=== PATIENT | female | born 1975 | race Caucasian/White ===

== ENCOUNTER 2016-12-05 08:51 | Emergency (ER) | payer OTHER ==
[2016-12-05] MEDS ORDERED: TORAdol 30 mg Injection IM ONE (09:36)
[2016-12-05] MEDS ORDERED: TORAdol 30 mg Injection ONE (09:44)
--- NOTE | 2016-12-05 10:08 | ERPHSYRPT ---
- History of Present Illness Time Seen by Provider: 12/05/16 09:21 Source: patient Patient Subjective Stated Complaint: pt states she has been working a lot and c/ o pain to right knee. states she has had an injury to right knee in the past. pt states Dr. mandi Jama used to give her steriod injestions. Triage Nursing Assessment: pt pink, warm, dry, pt ambulted into er without difficulty. no deformity noted to right knee. Physician History: CC: right knee pain hx: 41 y/o patient with right knee pain for several years. She is on percocet thru Dr Jama. Has had knee aspiration and steroid injection in the past. She has appt to see Dr Jama tomorrow. She took a new job and bent over to place something in locker and felt a snap in her right knee. She could not work so came to ER. She states this is not a work related injury. No fever, redness or chills. Allergies/Adverse Reactions: No Known Drug Allergies Allergy (Verified 12/05/16 09:13) Home Medications: Alprazolam [Xanax] 0.5 mg PO BID 09/12/14 [History] Pantoprazole 20 mg [Protonix 20MG Tablet] 20 mg PO DAILY 12/01/15 [History ] Duloxetine HCl [Cymbalta] 60 mg PO DAILY 12/05/16 [History] Lurasidone HCl [Latuda] 20 mg PO DAILY 12/05/16 [History] Hx Tetanus, Diphtheria Vaccination/Date Given: Yes (up to date) Hx Influenza Vaccination/Date Given: No Hx Pneumococcal Vaccination/Date Given: No Immunizations Up to Date: Yes - Review of Systems Constitutional: No Fever, No Chills Musculoskeletal: Joint Pain (right knee), No Back Pain, No Neck Pain Neurological: No Focal Weakness, No Parasthesia - Past Medical History Pertinent Past Medical History: Yes Neurological History: No Pertinent History ENT History: No Pertinent History Cardiac History: Other Endocrine Medical History: No Pertinent History Musculoskeletal History: Degenerative Disk Disease GI Medical History: No Pertinent History History: No Pertinent History Psycho-Social History: Anxiety, Depression Female Reproductive Disorders: Other Other Medical History: heart murmur - Past Surgical History Past Surgical History: Yes Neuro Surgical History: No Pertinent History Cardiac: No Pertinent History Gastrointestinal: No Pertinent History Genitourinary: No Pertinent History Musculoskeletal: No Pertinent History Female Surgical History: Section, Other Other Surgical History: ablation, one ovary removed - Social History Smoking Status: Current every day smoker How long have you smoked: 20 Exposure to second hand smoke: No Drug Use: none Patient Lives Alone: No - Female History Hx Last Menstrual Period: ablation - Nursing Vital Signs Nursing Vital Signs: Initial Vital Signs Temperature 97.8 F Temperature Source Oral Pulse Rate 84 Respiratory Rate 18 Blood Pressure 147/69 Pain Intensity 4 - Physical Exam General Appearance: alert Eyes, Ears, Nose, Throat Exam: moist mucous membranes Neck Exam: supple Cardiovascular/Respiratory Exam: regular rate/rhythm Hips Exam: right: non-tender, normal inspection Legs Exam: right leg: normal inspection, normal range of motion Knees Exam: right knee: bone tenderness, soft tissue tenderness Ankle Exam: right ankle: non-tender, normal inspection Neuro/Tendon Exam: normal sensation, normal motor functions Mental Status Exam: alert, oriented x 3, cooperative Skin Exam: warm, dry - Course Nursing assessment & vital signs reviewed: Yes Ordered Tests: Active Orders 24 hr Category Date Time Status Missael Bandage Application -[facility] STAT Care 12/05/16 09:36 Active Medication Summary Discontinued Medications Generic Name Dose Route Start Last Admin Trade Name Freq PRN Reason Stop Dose Admin Ketorolac Tromethamine 60 mg 12/05/16 09:36 12/05/16 09:46 Toradol 30 Mg Injection IM 12/05/16 09:37 60 mg STAT ONE Administration Ketorolac Tromethamine Confirm 12/05/16 09:44 Toradol 30 Mg Injection Administered 12/05/16 09:45 Dose 60 mg .ROUTE .STK-MED ONE - Progress Progress Note: 12/05/16 10:06 She has diffuse knee tender. No swelling. She declines xray. Explained she needs to have knee injection at Dr Jama tomorrow as scheduled instead of in ER. Toradol and missael wrap given. Counseled pt/family regarding: diagnosis, need for follow-up - Departure Time of Disposition: 10:07 Departure Disposition: Home Clinical Impression: Right knee pain Qualifiers: Chronicity: chronic Qualified Code(s): M25.561 - Pain in right knee; G89.29 - Other chronic pain Condition: Stable Critical Care Time: No Referrals: RHONA JAMA [Primary Care Provider] - Instructions: Knee Pain Additional Instructions: Missael wrap See Dr Jama as scheduled tomorrow
[2016-12-05 10:20] VITALS: BP 151/85; PULSE 80; O2SAT 96
== END 2016-12-05 10:20 | disposition home or self-care (01) ==
LOC: ED 08:51
DX: M25.561 Pain in right knee (principal); G89.29 Other chronic pain; X50.0XXA Overexertion from strenuous movement or load, initial encounter
CPT/HCPCS: 96372; 99283; J1885

== ENCOUNTER 2018-02-20 16:55 | Observation (INO) | payer OTHER ==
[2018-02-20] MEDS ORDERED: Sodium Chloride 0.9% 10 ML FLUSH Syringe IV PRN (17:25)
[2018-02-20] MEDS ORDERED: APRESOLINE 20 MG/ML INJ IV PRN (17:26)
[2018-02-20] MEDS ORDERED: BABY ASPIRIN 81 MG CHEW PO ONE (17:30)
[2018-02-20 17:43] LABS: BASOPHIL % 0.3 % (0.0-0.4); Basophil (Absolute #) 0.04 (0-0.4); Eosinophil % 1.3 % (0.00-5.0); Eosinophil (Absolute #) 0.16 (0-0.5); Granulocyte Absolute (ANC) 8.69 (1.4-6.9); Granulocytes % 71.1 % (36.0-66.0); Hematocrit 39.9 % (35-47); Hemoglobin 13.1 gm/dl (12.0-16.0); Lymphocyte (Absolute #) 2.78 (1.0-4.6); Lymphocytes % 22.7 % (24.0-44.0); Mean Cell Volume 81.8 fl (78-100); Mean Corpuscular Hemoglobin 26.8 pg (26-32); Mean Corpuscular Hgb Concent. 32.8 g/dl (32-36); Mean Platelet Volume 10.7 fl (6-9.5); Monocyte (Absolute #) 0.56 (0.0-1.3); Monocytes % 4.6 % (0.0-12.0); Platelet Count 265 K/mm3 (150-450); Red Blood Count 4.88 M/mm3 (4.1-5.4); Red Cell Distribution Width 14.7 % (11.5-14.0); White Blood Count 12.2 K/mm3 (4.0-10.5)
[2018-02-20 18:08] LABS: ALBUMIN 4.4 g/dL (3.5-5.0); ALKALINE PHOSPHATASE 109 U/L (38-126); ANION GAP 14.2 MEQ/L (5-15); BLOOD UREA NITROGEN 15 mg/dL (7-17); CHLORIDE 103 mmol/L (98-107); Calcium 9.4 mg/dL (8.4-10.2); Carbon Dioxide 26 mmol/L (22-30); Creatinine 1 0.56 mg/dL (0.52-1.04); Glucose 150 mg/dL (74-106); Potassium 3.9 mmol/L (3.5-5.1); SGOT/AST 31 U/L (14-36); SGPT/ALT 34 U/L (0-35); SODIUM 139 mmol/L (137-145); Total Protein 7.5 g/dL (6.3-8.2)
[2018-02-20 18:18] LABS: NT PRO BNP 371 pg/mL (0-450)
[2018-02-20] MEDS ORDERED: Cyclobenzaprine 10 MG PO PRN (19:21)
[2018-02-20] MEDS ORDERED: Zestril 10 MG ONE (19:55)
[2018-02-20] MEDS ORDERED: hydroDIURIL 25 MG ONE (19:56)
[2018-02-20] MEDS: XANAX 1 MG PO SCH ×2 (19:57→22:48)
[2018-02-20] MEDS: Zestril 10 MG*** 10 MG, hydroDIURIL 25 MG*** 12.5 MG PO SCH ×2 (20:00)
[2018-02-20] MEDS: Sodium Chloride 0.9% 10 ML FLUSH Syringe IV SCH (22:47)
[2018-02-20] MEDS: Pepcid 20 MG PO SCH (22:47)
[2018-02-21] MEDS: Sodium Chloride 0.9% 10 ML FLUSH Syringe IV SCH (06:46)
[2018-02-21 07:04] VITALS: O2SAT 95
[2018-02-21] MEDS ORDERED: MEDICATION INTERVENTION MC SCH (07:30)
[2018-02-21] MEDS: XANAX 1 MG PO SCH (08:08)
[2018-02-21] MEDS: Pepcid 20 MG PO SCH (08:08)
[2018-02-21] MEDS: Zestril 10 MG*** 10 MG, hydroDIURIL 25 MG*** 12.5 MG PO SCH ×2 (08:09)
--- NOTE | 2018-02-21 08:30 | XRAY ---
Indication: Short of breath. Hypertension. Comparison: September 12, 2014. PA/lateral chest now demonstrates subtle right middle lobe infiltrate versus atelectasis. Remaining heart and lungs unremarkable. Bony thorax intact again with mild degenerative changes.
--- NOTE | 2018-02-21 08:58 | PCM.HP ---
History of Present Illness - Chief Complaint Chief Complaint: SOB Date: 02/21/18 History of Present Illness: is a 42 year old female. she presented to the clinic yesterday for routine refills however she had been feeling short of breath for about 1 month and tingling in her arms and more shortness of breath with laying down. She had checked her bp in [facility] a few times and it said high and >200 but she didn't think it was right. She had been seen in [facility] ED and given azithromycin for bronchitis a few weeks previously and they had told her to stop her HCTZ blood pressure pill because it would make her dehydrated and cough so she had not been taking it. She denied any chest pain. SHe has been working 7 days per week and drinks about 1 pint of liquor per night. SHe has had nonproductive cough. In office she was found to have EKG with nonspecific ST T wave abnormalities and prolonged Qtc and she had bp of 220/120 and was given clonidine 0.1 mg daily and sent for observation. Overnight she received lisinopril/hctz and a dose of hydralazine 10 mg and this am bp improved to 150/70 and she is feeling a little better. She has less shortness of breath. CXR shows subtle pneumonia in the right middle lobe. - Review of Systems Constitutional: No Fever, No Chills Eyes: No Symptoms Ears, Nose, & Throat: No Symptoms Respiratory: Cough, Short Of Breath Cardiac: No Chest Pain, No Edema, No Syncope Abdominal/Gastrointestinal: No Abdominal Pain, No Nausea, No Vomiting, No Diarrhea Genitourinary Symptoms: No Dysuria Musculoskeletal: No Back Pain, No Neck Pain Skin: No Rash Neurological: No Dizziness, No Focal Weakness, No Sensory Changes Psychological: No Symptoms Endocrine: No Symptoms Hematologic/Lymphatic: No Symptoms Immunological/Allergic: No Symptoms Medications & Allergies Home Medications: Home Medication List Ranitidine HCl [Zantac] 150 mg PO BID #0 tablet 09/14/14 [Rx Confirmed 02/20/18] Pantoprazole 20 mg [Protonix 20MG Tablet] 20 mg PO DAILY 12/01/15 [ History Confirmed 02/20/18] Duloxetine HCl [Cymbalta] 60 mg PO HS 12/05/16 [History Confirmed 02/20/18] Lurasidone HCl [Latuda] 20 mg PO HS 12/05/16 [History Confirmed 02/20/18] Alprazolam 0.5 mg PO BID #60 tablet 02/21/18 [Rx] Cefdinir 300 mg [Omnicef 300 mg] 300 mg PO BID #12 capsule 02/21/18 [Rx] Lisinopril/Hydrochlorothiazide [Lisinopril-Hctz 10-12.5 mg Tab] 1 each PO BID # 60 tablet 02/21/18 [Rx] Allergies/Adverse Reactions: Allergies Allergy/AdvReac Type Severity Reaction Status Date / Time No Known Drug Allergies Allergy Verified 12/05/16 09:13 - Past Medical History Past Medical History: Yes Neurological History: No Pertinent History ENT History: No Pertinent History Cardiac History: Other Respiratory History: Bronchitis Endocrine Medical History: No Pertinent History Musculoskelatal History: Degenerative Disk Disease GI Medical History: No Pertinent History History: No Pertinent History Pyscho-Social History: Anxiety, Depression Reproductive Disorders: Other Comment: heart murmur - Female History Are you now?: No - Past Surgical History Past Surgical History: Yes Neuro Surgical History: No Pertinent History Cardiac History: No Pertinent History Respiratory Surgery: No Pertinent History GI Surgical History: No Pertinent History Genitourinary Surgical Hx: No Pertinent History Musculskeletal Surgical Hx: No Pertinent History Female Surgical History: Section, Other Other Surgical History: ablation, one ovary removed - Social History Smoking Status: Current every day smoker How long have you smoked: 20 Exposure to second hand smoke: No Alcohol: Occasionally Drug Use: none - Physical Exam Vital Signs: Vital Signs - 24 hr Temp Pulse Resp BP Pulse Ox 02/21/18 07:03 97.6 F 70 20 150/67 95 02/21/18 04:00 97.5 F 74 18 179/79 97 02/21/18 00:00 98.1 F 77 16 193/88 94 L 02/20/18 22:45 180/96 02/20/18 20:05 98.3 F 76 20 208/91 95 02/20/18 17:44 98.2 F 110 H 22 218/98 95 02/20/18 17:13 98.2 F 110 H 22 218/98 95 General Appearance: no apparent distress, alert, obese Neurologic Exam: alert, oriented x 3, cooperative, normal mood/affect, nml cerebellar function, nml station & gait, sensation nml, No motor deficits Eye Exam: PERRL/EOMI, eyes nml inspection Ears, Nose, Throat Exam: normal ENT inspection, TMs normal, pharynx normal, moist mucous membranes Neck Exam: normal inspection, non-tender, supple, full range of motion Respiratory Exam: normal breath sounds, lungs clear, No respiratory distress Cardiovascular Exam: regular rate/rhythm, normal heart sounds, normal peripheral pulses Gastrointestinal/Abdomen Exam: soft, normal bowel sounds, No tenderness, No mass Back Exam: normal inspection, normal range of motion, No CVA tenderness, No vertebral tenderness Extremity Exam: normal inspection, normal range of motion, pelvis stable Skin Exam: normal color, warm, dry, No rash Lymphatic Exam: No adenopathy Results - Labs Lab/Micro Results: Lab Results-Last 24 Hours 02/20/18 02/20/18 Range/Units 17:29 17:29 WBC 12.2 H (4.0-10.5) K/mm3 RBC 4.88 (4.1-5.4) M/mm3 Hgb 13.1 (12.0-16.0) gm/dl Hct 39.9 (35-47) % MCV 81.8 (78-100) fl MCH 26.8 (26-32) pg MCHC 32.8 (32-36) g/dl RDW 14.7 H (11.5-14.0) % Plt Count 265 (150-450) K/mm3 MPV 10.7 H (6-9.5) fl Gran % 71.1 H (36.0-66.0) % Eos # (Auto) 0.16 (0-0.5) Absolute Lymphs (auto) 2.78 (1.0-4.6) Absolute Monos (auto) 0.56 (0.0-1.3) Lymphocytes % 22.7 L (24.0-44.0) % Monocytes % 4.6 (0.0-12.0) % Eosinophils % 1.3 (0.00-5.0) % Basophils % 0.3 (0.0-0.4) % Absolute Granulocytes 8.69 H (1.4-6.9) Basophils # 0.04 (0-0.4) Sodium 139 (137-145) mmol/L Potassium 3.9 (3.5-5.1) mmol/L Chloride 103 (98-107) mmol/L Carbon Dioxide 26 (22-30) mmol/L Anion Gap 14.2 (5-15) MEQ/L BUN 15 (7-17) mg/dL Creatinine 0.56 (0.52-1.04) mg/dL Estimated GFR > 60.0 ML/MIN Glucose 150 H (74-106) mg/dL Calcium 9.4 (8.4-10.2) mg/dL Total Bilirubin 0.50 (0.2-1.3) mg/dL AST 31 (14-36) U/L ALT 34 (0-35) U/L Alkaline Phosphatase 109 (38-126) U/L NT-Pro-B Natriuret Pep 371 (0-450) pg/mL Serum Total Protein 7.5 (6.3-8.2) g/dL Albumin 4.4 (3.5-5.0) g/dL TSH 3rd Generation 1.670 (0.47-4.68) mIU/L - Radiology Impressions Radiology Exams & Impressions: Radiology Procedures Category Date Time Status CHEST 2 VIEWS (PA AND LAT) Routine Exams 02/20/18 17:45 Completed - Other Procedures and Tests Respiratory Therapy 02/21/18 07:00 EKG ROUTINE Assessment/Plan (1) Pneumonia Current Visit: Yes Status: Acute Qualifiers: Laterality: right Lung location: middle lobe of lung Assessment & Plan: given dose of rocephin completed azithromycin a few weeks ago finish coarse with cefdinir f/u if not improving or worsening. Code(s): J18.9 - PNEUMONIA, UNSPECIFIED ORGANISM (2) Hypertensive emergency Current Visit: Yes Status: Acute Assessment & Plan: telemetry with no events repeat ekg this am with nonspecific st t wave changes no change and QTc improved bnp normal and no chest pain her sob is improving and partly due to her pneumonia as above she is started on lisinopril 08/30.5 and will take this bid and follow up next week in office for repeat bp currently 150/72 and asymptomatic she phillips top her adderall moderate her alcohol and work on improved diet and exercise. Code(s): I16.1 - HYPERTENSIVE EMERGENCY (3) Shortness of breath Current Visit: Yes Status: Acute Code(s): R06.02 - SHORTNESS OF BREATH
--- NOTE | 2018-02-21 09:03 | PCM.DCORD ---
- Discharge Discharge Date: 02/21/18 Disposition: Home, Self-Care Condition: Stable Prescriptions: New Alprazolam 0.5 mg PO BID #60 tablet Lisinopril/Hydrochlorothiazide [Lisinopril-Hctz 10-12.5 mg Tab] 1 each PO BID #60 tablet Cefdinir 300 mg [Omnicef 300 mg] 300 mg PO BID #12 capsule Continue Ranitidine HCl [Zantac] 150 mg PO BID #0 tablet Pantoprazole 20 mg [Protonix 20MG Tablet] 20 mg PO DAILY Duloxetine HCl [Cymbalta] 60 mg PO HS Lurasidone HCl [Latuda] 20 mg PO HS Discontinued Alprazolam [Xanax] 0.5 mg PO BID Cyclobenzaprine HCl 10 mg [Flexeril 10 MG] 10 mg PO TID #20 tablet Follow up with: RHONA JAMA [Primary Care Provider] - 1 Week
[2018-02-21] MEDS: ROCEPHIN 1 Gm-D5w 50 ml Bag** 1 G/50 ML IVPB IV SCH ×2 (09:40→09:46)
[2018-02-21] MEDS ORDERED: Pepcid 20 MG PO SCH (10:00)
[2018-02-21] MEDS ORDERED: Protonix 20MG Tablet PO SCH (10:00)
[2018-02-21] MEDS ORDERED: Zestril 10 MG*** 10 MG, hydroDIURIL 25 MG*** 12.5 MG PO SCH ×2 (10:00)
[2018-02-21] MEDS ORDERED: NON-FORMULARY ITEM (Ranitidine Hcl [Zantac] 150 MG) PO SCH (10:00)
[2018-02-21 11:29] VITALS: PULSE 74
[2018-02-21] MEDS ORDERED: Apresoline 25 MG TABLET PO ONE (11:30)
--- NOTE | 2018-02-21 12:38 | PCM.DCORD ---
- Discharge Discharge Date: 02/21/18 Disposition: Home, Self-Care Condition: Stable Prescriptions: New Alprazolam 0.5 mg PO BID #60 tablet Lisinopril/Hydrochlorothiazide [Lisinopril-Hctz 10-12.5 mg Tab] 1 each PO BID #60 tablet Cefdinir 300 mg [Omnicef 300 mg] 300 mg PO BID #12 capsule HydrALAzine HCL 25 MG TAB [Apresoline 25 MG TABLET] 25 mg PO TID #90 tablet Continue Ranitidine HCl [Zantac] 150 mg PO BID #0 tablet Pantoprazole 20 mg [Protonix 20MG Tablet] 20 mg PO DAILY Duloxetine HCl [Cymbalta] 60 mg PO HS Lurasidone HCl [Latuda] 20 mg PO HS Discontinued Alprazolam [Xanax] 0.5 mg PO BID Cyclobenzaprine HCl 10 mg [Flexeril 10 MG] 10 mg PO TID #20 tablet Instructions: High Blood Pressure in Adults Follow up with: RHONA JAMA [Primary Care Provider] - 02/28/18 1:45 pm Forms: Discharge Instructions
[2018-02-21 13:46] VITALS: BP 148/65
[2018-02-21] MEDS ORDERED: NON-FORMULARY ITEM (Duloxetine Hcl [Cymbalta] 60 MG) PO SCH (22:00)
[2018-02-21] MEDS ORDERED: LURASIDONE HCL 20 MG PO SCH (22:00)
[2018-02-21] MEDS ORDERED: Cymbalta 30 MG Capsule PO SCH (22:00)
== END 2018-02-21 14:15 | disposition home or self-care (01) ==
LOC: MED SURG 16:55
PROVIDERS: ADMIT Family Medicine; ATTEND Family Medicine
DX: J18.9 Pneumonia, unspecified organism (principal); I16.1 Hypertensive emergency; F41.8 Other specified anxiety disorders; R01.1 Cardiac murmur, unspecified; Z79.899 Other long term (current) drug therapy; Z72.0 Tobacco use
CPT/HCPCS: 36415; 71046; 80053; 83880; 84443; 85025; 93005; 93268; J0360; J0696; A9270-GY; G0378

== ENCOUNTER 2018-06-28 12:26 | Emergency (ER) | payer OTHER ==
--- NOTE | 2018-06-28 12:45 | ERPHSYRPT ---
- History of Present Illness Time Seen by Provider: 06/28/18 12:38 Source: patient Exam Limitations: no limitations Physician History: The patient is a 43-year-old female complaining of worsening left knee pain for the past one month. She denies trauma. She states it feels like it is swollen and tight. 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 She had taken ibuprofen in the past but has not taken any today. She has not iced her knee. She has an appointment with Dr. Jama next Sunday. Her past medical history is significant for a right knee injury a few years ago, hypertension, GERD, and anxiety. Method of Injury: unknown Occurred: other (1 month) Quality: constant Severity of Pain-Max: moderate Severity of Pain-Current: moderate Lower Extremities Pain: knee: left Modifying Factors: Improves With: pain medication (ibuprofen) Associated Symptoms: none Allergies/Adverse Reactions: No Known Drug Allergies Allergy (Verified 12/05/16 09:13) Home Medications: Pantoprazole 20 mg [Protonix 20MG Tablet] 20 mg PO DAILY 12/01/15 [History ] Duloxetine HCl [Cymbalta] 60 mg PO HS 12/05/16 [History] Lurasidone HCl [Latuda] 20 mg PO HS 12/05/16 [History] Hx Tetanus, Diphtheria Vaccination/Date Given: Yes (up to date) Hx Influenza Vaccination/Date Given: No Hx Pneumococcal Vaccination/Date Given: No - Review of Systems Constitutional: No Fever, No Chills Eyes: No Symptoms Ears, Nose, & Throat: No Symptoms Respiratory: No Cough, No Dyspnea Cardiac: No Chest Pain, No Edema, No Syncope Abdominal/Gastrointestinal: No Abdominal Pain, No Nausea, No Vomiting, No Diarrhea Genitourinary Symptoms: No Dysuria Musculoskeletal: Joint Swelling (left knee) Skin: No Rash Neurological: No Dizziness, No Focal Weakness, No Sensory Changes Psychological: No Symptoms Endocrine: No Symptoms Hematologic/Lymphatic: No Symptoms Immunological/Allergic: No Symptoms All Other Systems: Reviewed and Negative - Past Medical History Pertinent Past Medical History: Yes Neurological History: No Pertinent History ENT History: No Pertinent History Cardiac History: Other Respiratory History: Bronchitis Endocrine Medical History: No Pertinent History Musculoskeletal History: Degenerative Disk Disease GI Medical History: No Pertinent History History: No Pertinent History Psycho-Social History: Anxiety, Depression Female Reproductive Disorders: Other Other Medical History: heart murmur - Past Surgical History Past Surgical History: Yes Neuro Surgical History: No Pertinent History Cardiac: No Pertinent History Respiratory: No Pertinent History Gastrointestinal: No Pertinent History Genitourinary: No Pertinent History Musculoskeletal: No Pertinent History Female Surgical History: Section, Other Other Surgical History: ablation, one ovary removed - Social History Smoking Status: Current every day smoker How long have you smoked: 20 Exposure to second hand smoke: No Drug Use: none Patient Lives Alone: No - Nursing Vital Signs Nursing Vital Signs: Initial Vital Signs Temperature 97.9 F 06/28/18 12:29 Pulse Rate 75 06/28/18 12:29 Respiratory Rate 16 06/28/18 12:29 Blood Pressure 134/64 06/28/18 12:29 O2 Sat by Pulse Oximetry 97 06/28/18 12:29 Pain Scale Pain Intensity 8 - Physical Exam General Appearance: alert Eyes, Ears, Nose, Throat Exam: moist mucous membranes Neck Exam: non-tender, supple Cardiovascular/Respiratory Exam: chest non-tender, normal breath sounds, regular rate/rhythm, no respiratory distress Gastrointestinal/Abdominal Exam: non-tender, guarding Back Exam: normal inspection, No vertebral tenderness Hips Exam: bilateral: non-tender, normal inspection Legs Exam: bilateral leg: normal inspection Knees Exam: left knee: swelling Ankle Exam: bilateral ankle: normal inspection Foot Exam: bilateral foot: normal inspection Neuro/Tendon Exam: normal sensation, normal motor functions Mental Status Exam: alert, oriented x 3, cooperative Skin Exam: normal color, warm, dry SpO2 Interpretation: normal Oxygen Delivery: Room Air - Radiology Exams Left Knee X-ray Interpretation: Reviewed by me, Teleradiologist Report (per Dr Maciel), Negative, Other (suprapatellar effusion) Ordered Tests: Active Orders 24 hr Category Date Time Status Cold Application STAT Care 06/28/18 12:49 Active KNEE (3 VIEWS) Stat Exams 06/28/18 12:50 Completed Medication Summary Discontinued Medications Generic Name Dose Route Start Last Admin Trade Name Freq PRN Reason Stop Dose Admin Ketorolac Tromethamine 60 mg 06/28/18 12:49 06/28/18 12:59 Toradol 30 Mg Injection IM 06/28/18 12:50 60 mg STAT ONE Administration Ketorolac Tromethamine Confirm 06/28/18 12:54 Toradol 30 Mg Injection Administered 06/28/18 12:55 Dose 60 mg .ROUTE .STK-MED ONE - Progress Progress: improved Counseled pt/family regarding: diagnosis, rad results - Departure Time of Disposition: 14:41 Departure Disposition: Home Clinical Impression: Knee pain Condition: Stable Critical Care Time: No Referrals: RHONA JAMA [Primary Care Provider] - Additional Instructions: You have left knee pain and fluid in her left knee. The x-ray did not show any broken bones. You were given Toradol 60 mg by IM in the ER. You may continue to take Toradol 10 mg every 6 hours as needed. Apply ice to the knee at least 3 times a day. Follow-up as scheduled next Sunday with your primary medical doctor. Prescriptions: Ketorolac Tromethamine [Toradol] 10 mg PO Q6H PRN PRN #12 tablet PRN Reason: Pain
[2018-06-28] MEDS ORDERED: TORAdol 30 mg Injection IM ONE (12:49)
[2018-06-28] MEDS ORDERED: TORAdol 30 mg Injection ONE (12:54)
--- NOTE | 2018-06-28 13:36 | XRAY ---
Indication: Pain and swelling 1 month. Comparison: September 02, 2015. 3 portable views of the left knee demonstrates new small nonspecific suprapatellar effusion. No other bony, articular, or soft tissue abnormalities.
[2018-06-28 13:51] VITALS: BP 119/57; PULSE 57; O2SAT 95
== END 2018-06-28 14:56 | disposition home or self-care (01) ==
LOC: ED 12:26
DX: M25.562 Pain in left knee (principal); M25.462 Effusion, left knee
CPT/HCPCS: 73562; 96372; 99284; J1885

== ENCOUNTER 2018-10-25 20:10 | Emergency (ER) | payer OTHER ==
[2018-10-25] MEDS ORDERED: Sodium Chloride 0.9% 1000 ML 1,000 ML ONE (20:27)
[2018-10-25] MEDS ORDERED: Sodium Chloride 0.9% 1000 ML 1,000 ML IV SCH (20:30)
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
[2018-10-25 20:39] LABS: BASOPHIL % 0.2 % (0.0-0.4); Basophil (Absolute #) 0.02 (0-0.4); Eosinophil % 0.7 % (0.00-5.0); Eosinophil (Absolute #) 0.07 (0-0.5); Granulocyte Absolute (ANC) 7.13 (1.4-6.9); Granulocytes % 66.6 % (36.0-66.0); Hematocrit 39.9 % (35-47); Hemoglobin 13.2 gm/dl (12.0-16.0); Lymphocyte (Absolute #) 2.83 (1.0-4.6); Lymphocytes % 26.4 % (24.0-44.0); Mean Cell Volume 83.6 fl (78-100); Mean Corpuscular Hemoglobin 27.7 pg (26-32); Mean Corpuscular Hgb Concent. 33.1 g/dl (32-36); Mean Platelet Volume 10.5 fl (6-9.5); Monocyte (Absolute #) 0.65 (0.0-1.3); Monocytes % 6.1 % (0.0-12.0); Platelet Count 303 K/mm3 (150-450); Red Blood Count 4.77 M/mm3 (4.1-5.4); Red Cell Distribution Width 13.8 % (11.5-14.0); White Blood Count 10.7 K/mm3 (4.0-10.5)
[2018-10-25 20:47] LABS: Appearance CLEAR (CLEAR); Bilirubin NEGATIVE (NEGATIVE); Blood NEGATIVE Ery/ul (0-5); Glucose NEGATIVE (NEGATIVE); Ketones NEGATIVE (NEGATIVE); Leukocyte Esterase NEGATIVE (NEGATIVE); Nitrite NEGATIVE (NEGATIVE); Protein,Urine Dip NEGATIVE (Negative); Specific Gravity 1.008 (1.005-1.025); Urobilinogen NEGATIVE mg/dL (0-1)
[2018-10-25 20:56] LABS: ALBUMIN 4.9 g/dL (3.5-5.0); ALKALINE PHOSPHATASE 87 U/L (38-126); AMYLASE 69 U/L (30-110); ANION GAP 20.6 MEQ/L (5-15); BLOOD UREA NITROGEN 21 mg/dL (7-17); CHLORIDE 101 mmol/L (98-107); Calcium 9.5 mg/dL (8.4-10.2); Carbon Dioxide 20 mmol/L (22-30); ETHYL ALCOHOL 252 mg/dL (0-10); Glucose 151 mg/dL (74-106); LIPASE 204 U/L (23-300); Potassium 3.1 mmol/L (3.5-5.1); SGOT/AST 31 U/L (14-36); SGPT/ALT 27 U/L (0-35); SODIUM 139 mmol/L (137-145); Total Protein 7.9 g/dL (6.3-8.2)
[2018-10-25 21:01] LABS: Amphetamine,Urine POSITIVE (NEGATIVE); Barbiturate,Urine NEGATIVE (NEGATIVE); Benzodiazepine,Urine POSITIVE (NEGATIVE); Cocaine,Urine NEGATIVE (NEGATIVE); Methadone,Urine NEGATIVE (NEGATIVE); Opiate,Urine NEGATIVE (NEGATIVE); PCP,Urine NEGATIVE (NEGATIVE); THC,Urine POSITIVE (NEGATIVE)
[2018-10-25] MEDS ORDERED: Adacel Vial IM ONE (21:32)
[2018-10-26] MEDS ORDERED: TORAdol 30 mg Injection IV ONE (00:16)
[2018-10-26] MEDS ORDERED: TORAdol 30 mg Injection ONE (00:18)
[2018-10-26 00:57] VITALS: BP 139/59; PULSE 83; O2SAT 95
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
== END 2018-10-26 00:59 | disposition home or self-care (01) ==
LOC: ED 20:10
DX: S00.83XA Contusion of other part of head, initial encounter (principal); S20.211A Contusion of right front wall of thorax, initial encounter; M54.2 Cervicalgia; F19.10 Other psychoactive substance abuse, uncomplicated; F10.929 Alcohol use, unspecified with intoxication, unspecified; R22.0 Localized swelling, mass and lump, head; V47.5XXA Car driver injured in collision with fixed or stationary object in traffic accident, initial encounter; Z79.899 Other long term (current) drug therapy
CPT/HCPCS: 36000; 36415; 70450; 70486; 71260; 72125; 74177; 80053; 80307; 81001; 82150; 83690; 84703; 85025; 93005; 96374; 99285; G0480; P9612; J1885